=== PATIENT | female | born 1995 | race African-American/Black ===

== ENCOUNTER 2017-02-11 12:20 | Emergency (ER) | payer MEDICAID ==
[~2017-02-11] VITALS: Ht 180.3 cm; Wt 107.0 kg
[2017-02-11 13:39] VITALS: BP 122/66
[2017-02-11] MEDS ORDERED: CEFTRIAXONE SODIUM 250 MG/VIAL IM ONE (13:45)
[2017-02-11] MEDS ORDERED: AZITHROMYCIN 500 MG TABLET PO ONE (13:45)
[2017-02-11] MEDS ORDERED: LIDOCAINE HCL 1% 20ML VIAL (Pyxis) INJ MC ONE (13:45)
[2017-02-11 14:34] LABS: CLARITY URINE CLEAR (CLEAR); COLOR URINE YELLOW (YELLOW); KETONES URINE NEGATIVE (NEGATIVE); LEUKOCYTE ESTERASE URINE NEGATIVE (NEGATIVE); NITRITE URINE NEGATIVE (NEGATIVE); OCCULT BLOOD URINE NEGATIVE (NEGATIVE); PROTEIN URINE NEGATIVE (NEGATIVE); SPECIFIC GRAVITY URINE 1.014 (1.005-1.030); UROBILINOGEN URINE 0.2 E.U./dL (0.2-1.0)
[2017-02-14 17:10] LABS: CHLAMYDIA TRACHOMATIS NAA Negative (Negative); NEISSERIA GONORRHOEAE NAA Negative (Negative)
== END 2017-02-11 15:38 | disposition home or self-care (01) ==
LOC: ER 14:57
DX: A64 Unspecified sexually transmitted disease (principal); F17.200 Nicotine dependence, unspecified, uncomplicated
CPT/HCPCS: 81003; 81025; 87210; 87491; 87591; 96372; 99284; J0696; J3490; Z7610

== ENCOUNTER 2021-12-01 13:57 | Emergency (ER) | payer MEDICAID ==
[~2021-12-01] VITALS: Ht 180.3 cm; Wt 123.0 kg
[2021-12-01 14:56] VITALS: BP 100/67
[2021-12-01] MEDS ORDERED: VALA100044 PO (16:44)
== END 2021-12-01 16:56 | disposition home or self-care (01) ==
LOC: ER 14:32
DX: N90.9 Noninflammatory disorder of vulva and perineum, unspecified (principal)
CPT/HCPCS: 99283

== ENCOUNTER 2022-01-25 07:35 | Emergency (ER) | payer MEDICAID ==
[~2022-01-25] VITALS: Ht 180.3 cm; Wt 106.0 kg
[~2022-01-25 07:35] MED LIST: VALA100044 PO
[2022-01-25] MEDS ORDERED: LEVETIRACETAM 500MG TABLET PO ONE (08:15)
[2022-01-25] MEDS ORDERED: KEPP500 MT (08:19)
[2022-01-25 08:58] VITALS: BP 131/72
== END 2022-01-25 08:58 | disposition home or self-care (01) ==
LOC: ER 07:35
DX: R56.9 Unspecified convulsions (principal); I10 Essential (primary) hypertension; Z76.0 Encounter for issue of repeat prescription; Z91.14 Patient's other noncompliance with medication regimen; Z13.9 Encounter for screening, unspecified
CPT/HCPCS: 81025; 99283